=== PATIENT | female | born 1985 | race American Indian/Alaskan Native ===

== ENCOUNTER 2021-02-10 20:17 | Emergency (ER) | payer MEDICAID ==
[~2021-02-10] VITALS: Ht 165.1 cm; Wt 85.3 kg
[2021-02-10 23:20] VITALS: BP 130/51
== END 2021-02-10 23:22 | disposition home or self-care (01) ==
LOC: ER 20:19
DX: F11.20 Opioid dependence, uncomplicated (principal); F41.9 Anxiety disorder, unspecified; F31.9 Bipolar disorder, unspecified; F17.210 Nicotine dependence, cigarettes, uncomplicated; Z88.5 Allergy status to narcotic agent